=== PATIENT | female | born 1945 | race Two or more races ===

== ENCOUNTER 2018-07-10 05:48 | Day surgery (SDC) | payer MEDICARE, BC ==
[~2018-07-10] VITALS: Ht 167.6 cm; Wt 81.6 kg
[2018-07-10] VITALS (10 sets, daily range): BP systolic 129–145; BP diastolic 65–76
[~2018-07-10 05:48] MED LIST: BENICAR40 MG ORAL; CALTRATE 600 +1 EAC2 PO; CELLCEPT250 MG ORAL; HUMALOG KW200 UNIT/1 SQ; JARDIANCE PO; METFORMIN HCL1000 M1 ORAL; METOPROLOL SUCC50 MG ORAL; NORVASC2.5 MG ORAL; PRESERVISION A1 EACH PO; TRESIBA FL200 UNIT/1 SQ; VITAMIN C500 M1 ORAL; VITAMIN D1000 UNI1 ORAL; ZETIA10 MG ORAL
[2018-07-10] MEDS ORDERED: Midazolam 2mg/2ml Inj ONE (06:29)
[2018-07-10] MEDS ORDERED: fentaNYL 100 mcg/2 mL IV ONE (06:29)
[2018-07-10] MEDS ORDERED: Propofol 200mg/20ml IV ONE (06:34)
[2018-07-10] MEDS ORDERED: Lidocaine 1% MPF 10mg/ml 5ml ONE (06:34)
[2018-07-10] MEDS ORDERED: Bupivacaine w/Epi 0.5% 30ml Vial INJ ONE (06:38)
[2018-07-10] MEDS ORDERED: EPINEPHrine 1mg/1ml Amp ONE (06:38)
[2018-07-10] MEDS ORDERED: Clindamycin 600mg 50 ML IV ONE (06:47)
[2018-07-10] MEDS ORDERED: NS Irrig 4000ml IRRIG ONE (07:00)
[2018-07-10] MEDS ORDERED: Sterile Water Irrig 1000ml IRRIG ONE (07:00)
--- NOTE | 2018-07-10 07:07 | Pre-Procedure Note/Attestation ---
Pre-Procedure Note/Attestation Complete Prior to Procedure Planned Procedure: left Indications for Procedure Pre-Operative Diagnosis: Left Knee meniscus tear both medial and lateral Attestation I attest that I discussed the nature of the procedure; its benefits; risks and complications; and alternatives (and the risks and benefits of such alternatives ), prior to the procedure, with the patient (or the patient's legal sales representative livestock). I attest that, if there was a reasonable possibility of needing a blood transfusion, the patient (or the patient's legal sales representative livestock) was given the [facility] standardized written summary, pursuant to the [place] Blood Safety Act ([place] Health and Safety Code # 1645, as amended). I attest that I re-evaluated the patient just prior to the surgery and that there has been no change in the patient's H&P, except as documented below: Gary Bang MD Jul 10, 2018 07:07
[2018-07-10] MEDS ORDERED: LR 1000ml 1,000 ML IVLG SCH (07:52)
--- NOTE | 2018-07-10 07:52 | Anethesia Preoperative Eval ---
Anesthesia Pre-op PMH/ROS General Date of Evaluation: Jul 10, 2018 Time of Evaluation: 07:05 Anesthesiologist: Terry ASA Score: ASA 3 Mallampati Score Class I : Soft palate, uvula, fauces, pillars visible Class II: Soft palate, uvula, fauces visible Class III: Soft palate, base of uvula visible Class IV: Only hard plate visible Mallampati Classification: Class II Surgeon: Merritt Diagnosis: L knee pain Surgical Procedure: L knee artroscopy Anesthesia History: none Family History: no anesthesia problems Allergies: Coded Allergies: PENICILLINS (Verified Allergy, Severe, 07/09/18) swelling,itching [id number] REDUCTASE INHIBITOR (Verified Allergy, Severe, 07/09/18) MYOSITIS-LOST OF MUSCLE ACTIVITY SULFA (SULFONAMIDE ANTIBIOTICS) (Verified Allergy, Severe, 07/09/18) FACIAL AND NECK WELLING Medications: see eMAR Patient NPO?: Yes Past Medical History Cardiovascular: Reports: HTN - stable; Denies: CAD, ME, valve dz, arrhythmia, other Pulmonary: Denies: asthma, COPD, MIGUELITO, other Gastrointestinal/Genitourinary: Reports: GERD - mild; Denies: CRI, ESRD, other Neurologic/Psychiatric: Denies: dementia, CVA, depression/anxiety, TIA, other Endocrine: Reports: DM - stable on insulin; Denies: hypothyroidism, steroids, other HEENT: Denies: cataract (L), cataract (R), glaucoma, BARROW (L), BARROW (R), other Hematology/Immune: Reports: anemia - mild; Denies: DVT, bleeding disorder, other Musculoskeletal/Integumentary: Reports: OA; Denies: RA, DJD, DDD, edema, other Other: other - overweight PMH Narrative: as above PSxH Narrative: Ovarian cyst removal Anesthesia Pre-op Phys. Exam Physician Exam Last Vital Signs Date Time Temp Pulse Resp B/P (MAP) Pulse Ox O2 Delivery O2 Flow Rate FiO2 07/10/18 06:28 Room Air 07/10/18 06:18 97.1 88 18 145/76 100 Constitutional: NAD Neurologic: CN 2-12 intact Cardiovascular: RRR, no M/R/G Respiratory: CTA Gastrointestinal: S/NT/ND Airway Exam Mallampati Score: Class II MO: full Neck: stiff ROM: limited Teeth: intact Dentures: no upper, no lower Anesthesia Pre-op A/P Labs see chart Accucheck 124 at admission Studies Pre-op Studies: EKG - NSR Risk Assessment & Plan Assessment: ASA3 Plan: GA with LMA Status Change Before Surgery: No Pre-Antibiotics Drug: Clindamycin 600mg Given Within 1 Hr of Incision: Yes Time Given: 07:42 Mukesh Stewart MD Jul 10, 2018 07:52
[2018-07-10] MEDS ORDERED: Ketorolac 30mg Inj IV PRN (08:00)
[2018-07-10] MEDS ORDERED: DiphenhydrAMINE 50mg/ml Inj IVP PRN (08:00)
[2018-07-10] MEDS ORDERED: fentaNYL 100 mcg/2 mL IV PRN (08:00)
--- NOTE | 2018-07-10 08:36 | Brief Operative Note ---
Immediate Post Operative Note Operative Note Pre-op Diagnosis: Left Knee meniscus tear both medial and lateral Procedure: medial and lateral meniscectomy Chondroplasty synovectomy arthroscopy Post-op Diagnosis: Torn left knee medial and lateral meniscus synovits degenerative arthritis knee Surgeon: Gary Bang Anesthesiologist: Dr. Pham Anesthesia: general Specimen: yes Complications: none Condition: stable Fluids: 250 cc Estimated Blood Loss: minimal Drains: none Implant(s) used?: No Gary Bang MD Jul 10, 2018 08:36
--- NOTE | 2018-07-10 08:41 | Immediate Post-Op Evaluation ---
Immediate Post-Op Evalulation Immediate Post-Op Evalulation Procedure: L knee arthroscopy, meniscectomy Date of Evaluation: Jul 10, 2018 Time of Evaluation: 08:40 IV Fluids: 700 Blood Products: none Estimated Blood Loss: min Urinary Output: none Blood Pressure Systolic: 132 Blood Pressure Diastolic: 68 Pulse Rate: 76 Respiratory Rate: 22 O2 Sat by Pulse Oximetry: 99 Temperature (Fahrenheit): 97.6 Pain Score (1-10): 1 Nausea: No Vomiting: No Complications none Patient Status: awake, patent, none Hydration Status: adequate Mukesh Stewart MD Jul 10, 2018 08:41
--- NOTE | 2018-07-10 09:25 | 48 Hour Post Anesthesia Eval ---
Post Anesthesia Evaluation Procedure: L knee arthroscopy, meniscectomy Date of Evaluation: Jul 10, 2018 Time of Evaluation: 09:24 Blood Pressure Systolic: 136 0: 72 Pulse Rate: 76 Respiratory Rate: 20 Temperature (Fahrenheit): 97.5 O2 Sat by Pulse Oximetry: 98 Airway: patent Nausea: No Vomiting: No Pain Intensity: 2 Hydration Status: adequate Cardiopulmonary Status: stable Mental Status/LOC: patient returned to baseline Follow-up Care/Observations: n/a Post-Anesthesia Complications: none Follow-up care needed: ready to discharge Mukesh Stewart MD Jul 10, 2018 09:25
--- NOTE | 2018-07-10 10:45 | Operative Note - Dictated ---
DATE OF OPERATION: 07/10/2018 PREOPERATIVE DIAGNOSES: Medial meniscus tear, lateral meniscus tear, degenerative arthritis of left knee. POSTOPERATIVE DIAGNOSES: Medial meniscus tear, lateral meniscus tear, degenerative arthritis, synovitis of left knee. OPERATIVE PROCEDURE: Medial meniscectomy, lateral meniscectomy, synovectomy, arthroscopy, chondroplasty. SURGEON: Gary Bang M.D. OPERATIVE FINDINGS: The patient had a posterior horn of medial meniscus tear. The patient had severe lateral meniscus tear. 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 There was synovitis throughout the knee. DESCRIPTION OF OPERATIVE PROCEDURE: The patient was taken to the operating room under general anesthesia. Left knee diagnostic arthroscopy was done. Medial and lateral portals were used with drainage portal through the superomedial site. Diagnostic arthroscopy was done. A subtotal posterior third medial meniscus tear was carried out removing all damaged tissue. The cartilage was stable underneath the meniscus tear and no chondroplasty was done. There was extensive synovitis throughout the anteromedial and anterolateral aspect of the knee as well as superomedially and superolaterally. Anteromedial, anterolateral, superomedial, superolateral, and suprapatellar synovectomies were done care being taken to get hemostasis. From the lateral side of the knee, extensive synovectomy was carried out. The lateral meniscus was shorter and torn severely. The lateral meniscus was removed to a stable base. There was granulation tissue and bleeding of the lateral meniscus indicating inflammation. Hemostasis was obtained using electrocautery. All debris was removed from the lateral side of the knee and all torn lateral meniscus tissue was removed. There was chondromalacia grade 4 and all loose cartilage was removed from the lateral side of the knee removing frayed cartilage. Because of the patient's age, no entry into the bone was done. The wound was irrigated copiously. Additional synovectomy was carried out through the medial gutter and the lateral gutter. There was loose debris in the medial gutter that was removed with a shaver. The suprapatellar pouch was examined and all debris was removed and all synovial hypertrophy was removed. Hemostasis was obtained. The patellofemoral joint had grade 2 chondromalacia and no procedure was done to the patella. The patient tolerated the procedure well and was taken to the recovery room in good condition. Gary Bang M.D. DR: Maggie JOB#: [id number] CC:
== END 2018-07-10 10:30 | disposition home or self-care (01) ==
LOC: SUR 05:48
DX: M23.222 Derangement of posterior horn of medial meniscus due to old tear or injury, left knee (principal); M23.201 Derangement of unspecified lateral meniscus due to old tear or injury, left knee; E11.9 Type 2 diabetes mellitus without complications; Z79.4 Long term (current) use of insulin; I10 Essential (primary) hypertension; E78.5 Hyperlipidemia, unspecified; K21.9 Gastro-esophageal reflux disease without esophagitis; M60.9 Myositis, unspecified; D64.9 Anemia, unspecified; E66.3 Overweight; Z88.0 Allergy status to penicillin; Z88.2 Allergy status to sulfonamides; Z88.8 Allergy status to other drugs, medicaments and biological substances
CPT/HCPCS: 29880; 82962; J0171; J1885; J2250; J2704; J3010; 94003; 94150; S0077